=== PATIENT | female | born 1970 | race Caucasian/White ===

== ENCOUNTER 2017-10-27 15:50 | Emergency (ER) | payer OTHER ==
[~2017-10-27] VITALS: Ht 157.5 cm; Wt 64.5 kg
[~2017-10-27 15:50] MED LIST: ASPI81EC97; ATEN50TA8 PO
--- NOTE | 2017-10-27 15:53 | NUR ---
Patient ambulated to bed 4. RN evaluating patient at bedside.
[2017-10-27 15:57] VITALS: BP 151/78
[2017-10-27] MEDS ORDERED: MORPHINE SULFATE 4 MG/ML SYR IVP ONE ×2 (16:30→18:50)
[2017-10-27] MEDS ORDERED: NACL 0.9% 1,000 ML IV ONE ×2 (16:30→19:30)
[2017-10-27] MEDS ORDERED: ONDANSETRON 4 MG/2 ML VIAL IVP ONE (16:30)
--- NOTE | 2017-10-27 16:30 | NUR ---
47/F C/O CP RADIATING TO LT ARM WITH SOB TODAY.HX; HTN, ANXIETY. RX; ATENOLOL, XANAXDENIES N/V/D; SKIN IS PINK/WARM/DRY; AAOX4 WITH EVEN AND STEADY GAIT; LUNGS CLEAR BL; PATIENT STATES PAIN OF 10/10 AT THIS TIME. PATIENT POSITIONED FOR COMFORT; HOB ELEVATED; BEDRAILS UP X2; BED DOWN. ER MD MADE AWARE OF PT STATUS.
--- NOTE | 2017-10-27 18:30 | NUR ---
pt resting comfortably in bed at this time.
[2017-10-27 18:34] LABS: ANION GAP 14.6 (8-16); CARBON DIOXIDE 23.9 mmol/L (21-32); CHLORIDE 97 mmol/L (98-107); CREATININE 2.3 mg/dL (0.6-1.3); GFR ARICAN-AMERICAN 29 mL/min (>90); GLUCOSE 163 mg/dL (74-106); POTASSIUM 3.5 mmol/L (3.5-5.1); SODIUM SERUM 132 mmol/L (136-145); UREA NITROGEN, BLOOD 46 mg/dL (7-18)
[2017-10-27 18:39] LABS: ALBUMIN 1.7 g/dL (3.4-5.0); ASPARTATE AMINOTRANSFERASE 20 U/L (15-37); LIPASE 45 U/L (73-393); MAGNESIUM 1.1 mg/dL (1.8-2.4); PHOSPHORUS 4.8 mg/dL (2.5-4.9); TOTAL BILIRUBIN 0.6 mg/dL (0.0-1.0)
--- NOTE | 2017-10-27 19:19 | NUR ---
Pt report given to anthoyn patel. Transfer of care at this time.
--- NOTE | 2017-10-27 19:29 | NUR ---
PT LAYING IN BED, STATES FEELS "BETTER" AFTER IVP MORPHINE, POSTIONED FOR COMFORT.
[2017-10-27 19:46] LABS: APPEARANCE,URINE CLEAR (CLEAR); BILIRUBIN,URINE NEGATIVE (NEGATIVE); BLOOD, URINE NEGATIVE (NEGATIVE); COLOR,URINE YELLOW (YELLOW); LEUKOCYTE ESTERASE ,URINE NEGATIVE (NEGATIVE); NITRITE, URINE NEGATIVE (NEGATIVE); UGLUCOSE 3+ (NEGATIVE)
[2017-10-27 19:53] LABS: PROTHROMBIN TIME 14.5 secs (10.8-13.4)
[2017-10-27 19:56] LABS: BARBITURATE, URINE NEG. ng/ml (NEG <=200); BENZODIAZEPINE, URINE POS. ng/mL (NEG <=200); CANNABINOID, URINE NEG. ng/mL (NEG <=50); COCAINE, URINE POS. ng/mL (NEG <=300); OPIATE, URINE NEG. ng/mL (NEG <=2000); PHENCYCLIDINE SCREEN,URINE NEG. ng/mL (NEG <=25)
--- NOTE | 2017-10-27 20:26 | NUR ---
Dr. Marie evaluating patient at bedside.
--- NOTE | 2017-10-27 21:30 | NUR ---
IV removed, catheter intact and site benign. Applied folded 4x4 gauze and tape to stop bleeding.
--- NOTE | 2017-10-27 21:32 | NUR ---
Patient discharged with v/s stable. Written and verbal after care instructions given and explained. Patient alert, oriented and verbalized understanding of instructions. Ambulatory with steady gait. All questions addressed prior to discharge. ID band removed. Patient advised to follow up with PMD. Rx of PEPCID, PREDNISONE, ATIVAN, ALBUTEROL given. Patient educated on indication of medication including possible reaction and side effects. Opportunity to ask questions provided and answered.
[2017-10-27 21:36] VITALS: BP 105/67
== END 2017-10-27 21:32 | disposition home or self-care (01) ==
LOC: MED 15:50
DX: R07.89 Other chest pain (principal); F41.9 Anxiety disorder, unspecified; J40 Bronchitis, not specified as acute or chronic; R94.31 Abnormal electrocardiogram [ECG] [EKG]; K21.9 Gastro-esophageal reflux disease without esophagitis; F32.9 Major depressive disorder, single episode, unspecified; I10 Essential (primary) hypertension; Z79.899 Other long term (current) drug therapy; Z88.2 Allergy status to sulfonamides
CPT/HCPCS: 36415; 71045; 80053; 80305; 81003; 83690; 83735; 84100; 84484; 85610; 85730; 96361; 96374; 96375; 99285; G0482; J2270; J2405; Q0092

== ENCOUNTER 2018-11-03 14:22 | Emergency (ER) | payer OTHER ==
[~2018-11-03] VITALS: Ht 157.5 cm; Wt 62.6 kg
[2018-11-03 14:40] VITALS: BP 183/114
--- NOTE | 2018-11-03 14:49 | NUR ---
C/O LUQ ABDOMINAL PAIN RADIATING TO MID CHEST X 1 DAY. 7/10 PAIN. REPORTS NAUSEA X 1 WEEK. ABDOMEN : SOFT. DENIES TRAUMA OR DYSURIA. HX: ANXIETY, HTN. PATIENT STATES PAIN OF 7/10 AT THIS TIME; VSS; PATIENT POSITIONED FOR COMFORT; HOB ELEVATED; BEDRAILS UP X2; BED DOWN. ER MD MADE AWARE OF PT STATUS.
[2018-11-03] MEDS ORDERED: ALUMINUM HYD/MAG/SIMETHICONE 30 ML UDC PO ONE (15:40)
[2018-11-03] MEDS ORDERED: ATENOLOL 25 MG TAB PO ONE (15:40)
[2018-11-03] MEDS ORDERED: FAMOTIDINE 20 MG TAB PO ONE (15:40)
[2018-11-03 16:08] LABS: BASOPHILS # (AUTO) 0.1 K/uL (0.00-0.22); BASOPHILS % (AUTO) 1.8 % (0.0-2.0); EOSINOPHILS # (AUTO) 0.1 K/uL (0-0.4); EOSINOPHILS % (AUTO) 0.8 % (0.0-4.0); HEMOGLOBIN 15.1 g/dL (12.0-16.0); LYMPHOCYTES # (AUTO) 1.5 K/uL (2.5-16.5); LYMPHOCYTES % (AUTO) 22.1 % (20.5-51.1); MEAN CORPUSCULAR HEMOGLOBIN 34 pg (27-31); MEAN CORPUSCULAR HGB CONC 34 g/dL (33-37); MEAN CORPUSCULAR VOLUME 101.6 fL (80-94); MONOCYTES # (AUTO) 0.5 K/uL (0.8-1.0); NEUTROPHILS # (AUTO) 4.7 K/uL (1.8-7.7); NEUTROPHILS % (AUTO) 68.3 % (42.2-75.2); PLATELET COUNT (AUTO) 283 K/uL (140-450); RED BLOOD CELL COUNT(AUTO) 4.43 MIL/uL (4.20-5.40); RED CELL DISTRIBUTION WIDTH 14.1 % (11.6-13.7); WHITE BLOOD COUNT (AUTO) 6.9 K/uL (4.8-10.8)
[2018-11-03 16:25] LABS: ANION GAP 17.7 (8-16); CARBON DIOXIDE 24.3 mmol/L (21-32); CREATININE 0.8 mg/dL (0.6-1.3)
[2018-11-03 16:31] LABS: ALBUMIN 3.9 g/dL (3.4-5.0); TOTAL BILIRUBIN 0.5 mg/dL (0.0-1.0)
[2018-11-03 16:59] VITALS: BP 150/100
--- NOTE | 2018-11-03 16:59 | NUR ---
Patient discharged with v/s stable. Written and verbal after care instructions given and explained. Patient alert, oriented and verbalized understanding of instructions. Ambulatory with steady gait. All questions addressed prior to discharge. ID band removed. Patient advised to follow up with PMD. Rx of ZOFRAN, OMIPRAZOLE & ATENOLO given. Patient educated on indication of medication including possible reaction and side effects. Opportunity to ask questions provided and answered.
== END 2018-11-03 16:59 | disposition home or self-care (01) ==
LOC: MED 14:22
DX: K29.70 Gastritis, unspecified, without bleeding (principal); I10 Essential (primary) hypertension; K21.9 Gastro-esophageal reflux disease without esophagitis; F41.9 Anxiety disorder, unspecified; Z79.82 Long term (current) use of aspirin; Z79.899 Other long term (current) drug therapy; Z88.2 Allergy status to sulfonamides
CPT/HCPCS: 36415; 80053; 81002; 81025; 83690; 85025; 99284